=== PATIENT | female | born 1955 | race African-American/Black ===

== ENCOUNTER 2017-04-10 17:57 | Emergency (ER) | payer OTHER ==
[~2017-04-10] VITALS: Ht 152.4 cm; Wt 68.0 kg
[~2017-04-10 17:57] MED LIST: ASPI81TA2 PO; CLON1TAB4 PO; IPRA14.7 IH; OMEP40CA37 PO; SIMV80TA5 PO
--- NOTE | 2017-04-10 19:40 | NUR ---
PT BIBSELF C/O NASAL CONGESTION AND "EXTREME SINUSITIS" PT AOX3 RR EVEN AND UNLABORED. NO SOB NOTED. NAD NOTED. NO NVD AT THIS TIME. PT GOWNED AND PLACED ON MONITOR WAITING FOR MD SANTIAGO.
[2017-04-10] MEDS ORDERED: ACETAMINOPHEN ES 500 MG TABLET ONE (20:14)
[2017-04-10] MEDS ORDERED: ACETAMINOPHEN 325 MG TABLET PO ONE (20:30)
--- NOTE | 2017-04-10 20:40 | NUR ---
PT TO CT.
--- NOTE | 2017-04-10 20:46 | NUR ---
PT RETURNED FROM CT.
--- NOTE | 2017-04-10 21:30 | NUR ---
MEEK PRESSLEY AT BEDSIDE SPEAKING TO PT REGARDING RESULTS.
--- NOTE | 2017-04-10 21:35 | NUR ---
Patient discharged to home in stable condition. Written and verbal after care instructions given. Patient verbalizes understanding of instruction. ambulatory with a steady gait.
[2017-04-10 21:51] VITALS: BP 129/68
== END 2017-04-10 21:35 | disposition home or self-care (01) ==
LOC: ER 17:59
DX: R51 Headache (principal); R05 Cough; J45.909 Unspecified asthma, uncomplicated; K21.9 Gastro-esophageal reflux disease without esophagitis; Z88.8 Allergy status to other drugs, medicaments and biological substances; Z79.82 Long term (current) use of aspirin
CPT/HCPCS: 70486; 99284; A4606; Z7610

== ENCOUNTER 2019-06-18 11:22 | Emergency (ER) | payer OTHER ==
[~2019-06-18] VITALS: Ht 154.9 cm; Wt 64.4 kg
[~2019-06-18 11:22] MED LIST changes: +ASPI-1169 PO; -ASPI81TA2 PO; +CLON1TAB12 PO; -CLON1TAB4 PO; +OMEP40CA13 PO; -OMEP40CA37 PO; -SIMV80TA5 PO; +SIMV80TA90 PO
--- NOTE | 2019-06-18 11:40 | NUR ---
PRODUCTIVE COUGH AND SHORTNESS OF BREATH SINCE YESTERDAY,GETTING WORSE. PATIENT A/OX4, BREATHING EVEN AND UNLABORED, NO SOB NOTED, CHANGED INTO GOWN, ATTACHED TO THE HOSPITALITY DIRECTOR.
[2019-06-18 12:24] LABS: BASOPHILS # (AUTO) 0.1 /CMM (0.0-0.2); BASOPHILS % (AUTO) 0.8 % (0.0-2.0); EOSINOPHILS % (AUTO) 0.7 % (0.0-6.0); HEMATOCRIT 39 % (33-45); HEMOGLOBIN 12.2 g/dL (11.5-14.8); LYMPHOCYTES # (AUTO) 0.9 /CMM (0.8-4.8); LYMPHOCYTES % (AUTO) 9.8 % (20.0-44.0); MEAN CORPUSCULAR HGB CONC 32 g/dl (31.0-36.0); MEAN CORPUSCULAR VOLUME 81 fL (82-100); MONOCYTES # (AUTO) 0.6 /CMM (0.1-1.30); NEUTROPHILS # (AUTO) 7.5 /CMM (1.8-8.9); NEUTROPHILS % (AUTO) 81.7 % (43.0-81.0); PLATELET COUNT (AUTO) 419 /CMM (150-450); RED BLOOD CELL COUNT(AUTO) 4.77 MIL/uL (4.0-5.2); WHITE BLOOD COUNT (AUTO) 9.2 K/uL (4.3-11.0)
[2019-06-18] MEDS ORDERED: ALBUTEROL FS 2.5 MG/3 ML VIAL.NEB NEB ONE (12:30)
[2019-06-18] MEDS ORDERED: IPRATROPIUM NEB FS 0.5 MG/2.5 ML AMPUL.NEB NEB ONE (12:30)
[2019-06-18] MEDS ORDERED: ONDANSETRON HCL/PF 4 MG/2 ML VIAL IVP ONE (12:30)
[2019-06-18] MEDS ORDERED: LIDOCAINE VISCOUS 2% UD 15 ML UDC MM ONE (12:30)
[2019-06-18] MEDS ORDERED: MAG HYDROX/AL HYDROX/SIMETH 30 ML UDC PO ONE (12:30)
[2019-06-18] MEDS ORDERED: MAG HYDROX/AL HYDROX/SIMETH 30 ML UDC ONE (12:36)
[2019-06-18] MEDS ORDERED: ONDANSETRON HCL/PF 4 MG/2 ML VIAL ONE (12:36)
[2019-06-18] MEDS ORDERED: LIDOCAINE VISCOUS 2% UD 15 ML UDC ONE (12:36)
[2019-06-18] MEDS ORDERED: FAMOTIDINE/PF INJ 20 MG/2 ML VIAL IV ONE ×2 (12:53→13:00)
[2019-06-18 12:57] LABS: CALCIUM, SERUM 10.2 mg/dL (8.5-10.1); CARBON DIOXIDE 31 mmol/L (21-32); CHLORIDE 108 mmol/L (98-107); GLUCOSE 103 mg/dL (74-106); POTASSIUM 4.9 mmol/L (3.5-5.1); SODIUM SERUM 144 mmol/L (136-145); UREA NITROGEN, BLOOD 16 mg/dL (7-18)
[2019-06-18 13:01] LABS: ALANINE AMINOTRANSFERASE 25 U/L (12-78); ALKALINE PHOSPHATASE 79 U/L (46-116); ASPARTATE AMINOTRANSFERASE 19 U/L (15-37); BILIRUBIN,TOTAL 0.2 mg/dL (0.2-1.0)
[2019-06-18] MEDS ORDERED: IPRATROPIUM NEB FS 0.5 MG/2.5 ML AMPUL.NEB ONE (13:06)
[2019-06-18] MEDS ORDERED: ALBUTEROL FS 2.5 MG/3 ML VIAL.NEB ONE (13:06)
--- NOTE | 2019-06-18 13:28 | NUR ---
RAPID FLU SWAB SENT TO LAB
[2019-06-18] MEDS ORDERED: methylPREDNISolone SOD SUCC 125 MG/2ML VIAL IV ONE (13:30)
[2019-06-18] MEDS ORDERED: methylPREDNISolone SOD SUCC 125 MG/2ML VIAL ONE (13:56)
--- NOTE | 2019-06-18 14:11 | NUR ---
IV removed. Catheter intact and site benign. Pressure and 4x4 applied to site. No bleeding noted.Patient discharged to home in stable condition. Written and verbal after care instructions given. Patient verbalizes understanding of instruction.
[2019-06-18 14:12] VITALS: BP 103/78
== END 2019-06-18 14:12 | disposition home or self-care (01) ==
LOC: ER 11:22
DX: J20.9 Acute bronchitis, unspecified (principal); K21.9 Gastro-esophageal reflux disease without esophagitis; J45.909 Unspecified asthma, uncomplicated; G89.29 Other chronic pain; M54.9 Dorsalgia, unspecified; Z98.890 Other specified postprocedural states; Z79.899 Other long term (current) drug therapy; Z79.82 Long term (current) use of aspirin; Z88.8 Allergy status to other drugs, medicaments and biological substances; Z88.9 Allergy status to unspecified drugs, medicaments and biological substances
CPT/HCPCS: 36415; 71045; 80048; 80076; 84484; 85025; 87804 ×2; 93005; 94640; 96374; 96375; 99284; J2405; J2930; J3490

== ENCOUNTER 2019-06-19 00:57 | Emergency (ER) | payer OTHER ==
[~2019-06-19] VITALS: Ht 154.9 cm; Wt 63.5 kg
[2019-06-19 00:57] VITALS: BP 129/82
[2019-06-19] MEDS ORDERED: LIDOCAINE VISCOUS 2% UD 15 ML UDC ONE (02:56)
[2019-06-19] MEDS ORDERED: ONDANSETRON 4 MG TAB.RAPDIS ONE (02:56)
[2019-06-19] MEDS ORDERED: AZITHROMYCIN 250 MG TABLET ONE (02:56)
[2019-06-19] MEDS ORDERED: LIDOCAINE VISCOUS 2% UD 15 ML UDC MM ONE (03:00)
[2019-06-19] MEDS ORDERED: AZITHROMYCIN 250 MG TABLET PO ONE (03:00)
[2019-06-19] MEDS ORDERED: ONDANSETRON 4 MG TAB.RAPDIS SL ONE (03:00)
== END 2019-06-19 03:20 | disposition home or self-care (01) ==
LOC: ER 00:57
DX: J20.9 Acute bronchitis, unspecified (principal); J32.9 Chronic sinusitis, unspecified; K21.9 Gastro-esophageal reflux disease without esophagitis; J45.909 Unspecified asthma, uncomplicated; Z98.890 Other specified postprocedural states; Z79.82 Long term (current) use of aspirin; Z79.899 Other long term (current) drug therapy; Z88.8 Allergy status to other drugs, medicaments and biological substances; Z88.9 Allergy status to unspecified drugs, medicaments and biological substances
CPT/HCPCS: 99284; Q0162